=== PATIENT | female | born 1940 | race Caucasian/White ===

== ENCOUNTER 2021-09-09 07:51 | Inpatient (IN) ==
[2021-09-09] MEDS ORDERED: Morphine 2 MG/ML SYRINGE IV ONE (09:34)
[2021-09-09 09:50] LABS: ABS Eosinophils 0.1 10^3/ul (0-0.6); ABS Lymphocytes 1.1 10^3/ul (1.0-4.8); ABS Monocytes 0.3 10^3/ul (0-0.8); ABS Neutrophils 3.3 10^3/ul (1.5-7.7); Eosinophil % 1.9 %; Hematocrit 38 % (35-47); Hemoglobin 12.3 g/dL (12.0-16.0); Lymphocyte % 21.8 %; Mean Corpuscular HGB Conc 33 g/dL (31-36); Mean Corpuscular Hemoglobin 30 pg (27-31); Mean Corpuscular Volume 94 fL (80-97); Mean Platelet Volume 9.3 fL (7.4-10.4); Platelet Count 511 10^3/uL (150-450); Red Blood Count 4.05 10^6 /uL (3.70-4.87); Red Cell Distribution Width 16 % (10-15); White Blood Count 4.9 10^3/uL (3.5-10.8)
[2021-09-09 10:05] LABS: Activated Partial Thrombo Time 37.9 seconds (26.0-38.0); INR 1.05 (0.86-1.15)
[2021-09-09 10:44] LABS: ALT 19 U/L (7-52); AST 29 U/L (13-39); Albumin 3.7 g/dL (3.2-5.2); Albumin/Globulin Ratio 1.2 (1-3); Alkaline Phosphatase 94 U/L (35-149); Anion Gap 11 mmol/L (2-11); Blood Urea Nitrogen 45 mg/dL (6-24); C Reactive Protein 1.95 mg/L (<8.01); CO2 Carbon Dioxide 23 mmol/L (22-32); Calcium 10.8 mg/dL (8.6-10.3); Chloride 118 mmol/L (101-111); Glucose 97 mg/dL (70-100); Potassium 4.9 mmol/L (3.5-5.0); Sodium 152 mmol/L (135-145); Total Protein 6.7 g/dL (6.4-8.9); Troponin I 0.03 ng/mL (<0.03); eGFR CKD-EPI 68.7 (>60)
[2021-09-09] MEDS ORDERED: Lactated Ringers 1000 ml BAG 1,000 ML IV ONE (10:51)
[2021-09-09] MEDS ORDERED: NS 0.9% 1000 ml BAG 1,000 ML IV SCH (12:15)
[2021-09-09 15:19] LABS: Troponin I 0.03 ng/mL (<0.03)
[2021-09-09 19:15] LABS: Calcium 10.4 mg/dL (8.6-10.3); eGFR CKD-EPI 71.7 (>60)
[2021-09-09] MEDS: NS 0.45% 1000 ml BAG 1,000 ML IV SCH (20:44)
[2021-09-10 02:03] LABS: Magnesium 2.2 mg/dL (1.9-2.7)
[2021-09-10] MEDS: NS 0.45% 1000 ml BAG 1,000 ML IV SCH (10:44)
[2021-09-10 11:24] LABS: Calcium 9.7 mg/dL (8.6-10.3); eGFR CKD-EPI 72.7 (>60)
[2021-09-10] MEDS ORDERED: D5W 1000 ml BAG 1,000 ML IV SCH ×3 (13:00→17:00)
[2021-09-10 14:04] LABS: Calcium (PTH Intact) 9.9 mg/dL (8.6-10.3); Phosphorus 2.3 mg/dL (2.5-5.0)
[2021-09-10 14:29] LABS: Vitamin D Total 25(OH) 23.1 ng/mL (20-50)
[2021-09-11 00:21] LABS: Calcium 9.8 mg/dL (8.6-10.3); Potassium 3.6 mmol/L (3.5-5.0); eGFR CKD-EPI 60.9 (>60)
[2021-09-11 07:14] LABS: Hematocrit 30 % (35-47); Mean Corpuscular HGB Conc 33 g/dL (31-36); Mean Corpuscular Hemoglobin 31 pg (27-31); Mean Corpuscular Volume 93 fL (80-97); Mean Platelet Volume 9.1 fL (7.4-10.4); Platelet Count 368 10^3/uL (150-450); Red Blood Count 3.26 10^6 /uL (3.70-4.87); Red Cell Distribution Width 15 % (10-15); White Blood Count 4.8 10^3/uL (3.5-10.8)
[2021-09-11 07:23] LABS: Calcium 9.6 mg/dL (8.6-10.3); Magnesium 1.9 mg/dL (1.9-2.7); Potassium 3.6 mmol/L (3.5-5.0); eGFR CKD-EPI 70.6 (>60)
[2021-09-11] MEDS ORDERED: Potassium Chlor 20 meq TAB.ER PO ONE (10:35)
[2021-09-11] MEDS: Polyethylene Glycol 3350 17 GM PACKET PO SCH (10:44)
[2021-09-11 12:12] LABS: Calcium 9.6 mg/dL (8.6-10.3); Potassium 3.7 mmol/L (3.5-5.0); eGFR CKD-EPI 65.9 (>60)
[2021-09-11] MEDS: KCL 10 MEQ/50 ML IVPREMIX 10 MEQ/50 ML BAG IV SCH ×2 (18:48→20:17)
[2021-09-12 06:35] LABS: ABS Eosinophils 0.1 10^3/ul (0-0.6); ABS Lymphocytes 1.3 10^3/ul (1.0-4.8); ABS Monocytes 0.5 10^3/ul (0-0.8); ABS Neutrophils 2.8 10^3/ul (1.5-7.7); Eosinophil % 1.7 %; Hematocrit 34 % (35-47); Hemoglobin 11.1 g/dL (12.0-16.0); Lymphocyte % 27.7 %; Mean Corpuscular HGB Conc 33 g/dL (31-36); Mean Corpuscular Hemoglobin 30 pg (27-31); Mean Corpuscular Volume 93 fL (80-97); Nucleated Red Blood Cells % 0.1; Platelet Count 369 10^3/uL (150-450); Red Blood Count 3.65 10^6 /uL (3.70-4.87); Red Cell Distribution Width 16 % (10-15); White Blood Count 4.7 10^3/uL (3.5-10.8)
[2021-09-12 06:58] LABS: Calcium 9.3 mg/dL (8.6-10.3); Potassium 3.8 mmol/L (3.5-5.0); eGFR CKD-EPI 80.9 (>60)
[2021-09-12] MEDS: Polyethylene Glycol 3350 17 GM PACKET PO SCH (07:31)
[2021-09-13 06:27] LABS: ABS Eosinophils 0.1 10^3/ul (0-0.6); ABS Lymphocytes 1.3 10^3/ul (1.0-4.8); ABS Monocytes 0.6 10^3/ul (0-0.8); Eosinophil % 1.8 %; Hematocrit 31 % (35-47); Hemoglobin 10.1 g/dL (12.0-16.0); Lymphocyte % 26.3 %; Mean Corpuscular HGB Conc 33 g/dL (31-36); Mean Corpuscular Hemoglobin 30 pg (27-31); Mean Corpuscular Volume 91 fL (80-97); Mean Platelet Volume 9.2 fL (7.4-10.4); Platelet Count 339 10^3/uL (150-450); Red Blood Count 3.36 10^6 /uL (3.70-4.87); Red Cell Distribution Width 15 % (10-15)
[2021-09-13 06:50] LABS: Calcium 9.7 mg/dL (8.6-10.3); Magnesium 1.9 mg/dL (1.9-2.7); Potassium 3.8 mmol/L (3.5-5.0); eGFR CKD-EPI 80.9 (>60)
[2021-09-13] MEDS: Polyethylene Glycol 3350 17 GM PACKET PO SCH (09:08)
[2021-09-13 14:02] VITALS: BP 116/54
== END 2021-09-13 14:55 | DRG 640 ==
LOC: ED 07:51 → EDHOLD 12:19 → SUATTDRO 12:19 → MEDTELE 18:03 → MED 09-11 22:02
PROVIDERS: ADMIT Hospitalist; ATTEND Internal Medicine